=== PATIENT | female | born 1950 | race Caucasian/White ===

== ENCOUNTER → 2017-03-06 | Outpatient (CLI) | payer MEDICARE, OTHER ==
[~2017-03-06] MED LIST: ASPEC81 PO; CALCTAB5 PO; MULT-506 PO; OMEG10007 PO
--- NOTE | 2017-03-06 14:50 | DIAGNOSTIC IMAGING REPORT ---
TEMPORAL BONE CT HISTORY: Right ASYMMETRICAL HEARING LOSS, DIZZINESS TECHNIQUE: Multiaxial CT images of the temporal bones were performed without the use of contrast and reformatted in the coronal plane. COMPARISON STUDY: Temporal bone CT 04/04/2013. FINDINGS: On the right, the external auditory canal is patent. The tympanic membrane is within normal limits. The middle ear cavity and mastoid air cells are normally aerated. The ossicles are intact. No evidence for inner ear dysplasia. The 7th cranial nerve demonstrates a normal course. On the left, the external auditory canal is patent. The tympanic membrane is within normal limits. The middle ear cavity is normally aerated. The ossicles are intact. No evidence for inner ear dysplasia. The 7th cranial nerve demonstrates a normal course. There are few partially opacified left inferior mastoid air cells. IMPRESSION: A few partially opacified left inferior mastoid air cells. Otherwise, normal bilateral temporal bones Electronically signed by: Gelacio Cisneros M.D. 03/06/2017 2:49 PM Dictated Date/Time: 03/06/2017 2:43 PM
== END ==
LOC: C.CTS 14:02
PROVIDERS: ATTEND Physician Assistant Medical
DX: H91.91 Unspecified hearing loss, right ear (principal); R42 Dizziness and giddiness

== ENCOUNTER → 2017-08-28 | Outpatient (CLI) | payer OTHER ==
[2017-08-28 15:08] LABS: ALB/GLOB RATIO 1.2 (0.9-2); ALT/SGPT 22 U/L (12-78); AST/SGOT 15 U/L (15-37); BLOOD UREA NITROGEN 17 mg/dl (7-18); BUN/CREATININE RATIO 20.6 (10-20); CALCIUM 9.3 mg/dl (8.5-10.1); CARBON DIOXIDE 28 mmol/L (21-32); CHLORIDE 109 mmol/L (98-107); CHOLESTEROL 164 mg/dl (0-200); CHOLESTEROL/HDL RATIO 2.8; CREATININE 0.81 mg/dl (0.60-1.20); GLUCOSE 89 mg/dl (70-99); HDL CHOLESTEROL 58 mg/dl; LDL CHOLESTEROL CALCULATED 87 mg/dl; SODIUM 143 mmol/L (136-145); TRIGLYCERIDES 95 mg/dl (0-150); VERY LOW DENSITY LIPOPROT CALC 19 mg/dl
[2017-08-28 15:09] LABS: ALKALINE PHOSPHATASE 54 U/L (45-117)
== END | disposition home or self-care (01) ==
LOC: C.LABPBG 08:44
PROVIDERS: ATTEND Nurse Practitioner Family
DX: E78.5 Hyperlipidemia, unspecified (principal)